=== PATIENT | female | born 1970 | race Caucasian/White ===

== ENCOUNTER 2016-07-29 21:25 | Emergency (ER) | payer BC, OTHER ==
[2016-07-29 21:41] VITALS: BP 128/69
--- NOTE | 2016-07-29 21:43 | UC ---
Cardiac HPI - HPI Summary HPI Summary: The patient comes in today for: 1. Upper left chest pain: Onset: 3 days ago. Palliative/provocative: Nothing makes it better or worse. Quality: Dull ache and sometimes it would be sharp. Region/radiation: Left anterior superior chest with mostly left arm tingling. Severity: 5/10 Time: Consant. Associated symptoms: Palpitations have occurred with pain. Dyspnea: None. Fatigue: Present. Previous heart problems: None. CAD risk factors: Smoker: (-), HTN: (-), DM (-), Fm Hx: Paternal grandfather [place] 38 y.o. Paternal grandmother age 60 from [place]. Cholesterol: "fine. " * - History of Current Complaint Stated Complaint: CHEST COMPLAINTS Time Seen by Provider: 07/29/16 21:34 Hx Obtained From: Patient - Allergy/Home Medications Allergies/Adverse Reactions: Allergies Allergy/AdvReac Type Severity Reaction Status Date / Time Latex Allergy Severe SKIN Verified 07/29/16 21:41 REACTION Iodine Allergy Unknown Unknown Verified 07/29/16 21:41 Reaction Details Shellfish Allergy Allergy Unknown Unknown Verified 07/29/16 21:41 Reaction Details IVP CONTRAST Allergy Unknown Unknown Uncoded 03/07/13 13:50 Reaction Details Home Medications: Home Medications Ibuprofen TAB* [Advil TAB*] 400 mg PO PRN 07/29/16 [History] Multiple Vitamins W/ Minerals [Vitamins & Minerals] 07/29/16 [History] PMH/Surg Hx/FS Hx/Imm Hx Previously Healthy: No Endocrine History Of: Denies: Diabetes, Thyroid Disease, Hyperthyroidism, Hypothyroidism, Dyslipidemia Cardiovascular History Of: Denies: Cardiac Disorders, Hypertension, Pacemaker/ICD, Myocardial Infarction , Congestive Heart Failure, Atrial Fibrillation, Deep Vein Thrombosis, Bleeding Disorders Respiratory History Of: Reports: Asthma Denies: COPD, Bronchitis, Pneumonia, Pulmonary Embolism GI/ History Of: Denies: Gastroesophageal Reflux, Ulcer, Gastrointestinal Bleed, Gall Bladder Disease, Kidney Stones, Diverticulitis, Renal Disease, Urosepsis Neurological History Of: Denies: TIA, CVA, Dementia, Seizures, Migraine Psychological History Of: Denies: Anxiety, Depression, Bipolar Disorder, Schizophrenia, Post Traumatic Stress Disorder Cancer History Of: Denies: Lung Cancer, Colorectal Cancer, Breast Cancer, Prostate Cancer, Cervical Cancer Other History Of: Negative For: HIV, Hepatitis B, Hepatitis C, Anticoagulant Therapy - Family History Known Family History: Positive: Cardiac Disease, Hypertension Negative: Diabetes - Social History Occupation: Employed Full-time Alcohol Use: Rare Substance Use Type: None Smoking Status (MU): Never Smoked Tobacco Review of Systems Constitutional: Negative Skin: Negative Eyes: Negative ENT: Negative Respiratory: Negative Cardiovascular: Chest Pain Gastrointestinal: Negative Genitourinary: Negative Motor: Negative All Other Systems Reviewed And Are Negative: Yes Physical Exam Triage Information Reviewed: Yes Appearance: Well-Appearing, No Pain Distress, Well-Nourished Vital Signs Reviewed: Yes Eyes: Positive: Conjunctiva Clear. Negative: Discharge ENT: Positive: Hearing grossly normal. Negative: Pharyngeal erythema, Nasal congestion, Nasal drainage, TM bulging, TM dull, TM red, Tonsillar swelling, Tonsillar exudate Dental: Negative: Gross Decay/Caries @, Dental Fracture @ Neck: Positive: Supple, Nontender, No Lymphadenopathy. Negative: Nuchal Rigidity, Tenderness @ Respiratory: Positive: Chest non-tender, Lungs clear, No respiratory distress, No accessory muscle use. Negative: Crackles, Wheezing Cardiovascular: Positive: RRR, No Murmur Abdomen Description: Positive: Nontender, No Organomegaly, Soft. Negative: Distended, Guarding Musculoskeletal: Positive: Strength Intact, ROM Intact, Other: - She has some chest tenderness to palpation, but she states that this is different from the chest pain that brings her in to be seen tonight. Neurological: Positive: Alert, Muscle Tone Normal Psychological: Positive: Age Appropriate Behavior, Consolable Skin: Negative: rashes, breakdown Diagnostics - Laboratory Diagnostic Studies Completed/Ordered: EKG: Rate: 87. Rhythm: sinus. Ectopy: ( -). Acute changes: (-) - Assessment/Plan Course Of Treatment: Patient was told that we could not rule out a cardiovascular cause of her chest pain and to do that, she would have to go to the ER. She agreed but wanted to have her friend take her. - Clinical Impression Provider Diagnoses: Chest pain - Physician Notifications Discussed Patient Care With: Nupur Flores Time Discussed With Above Provider: 21:56 Discharge - Discharge Plan Condition: Stable Disposition: HOME Additional Instructions: Please go directly to the [facility] ER.
[2016-07-29] MEDS ORDERED: Aspirin Low Dose CHEW TAB* 81 MG PO ONE (21:52)
== END 2016-07-29 21:59 | disposition left against medical advice (07) ==
LOC: UCEAST 21:25
DX: R07.89 Other chest pain (principal); R20.2 Paresthesia of skin; Z91.041 Radiographic dye allergy status
CPT/HCPCS: 99212; A9270-GY; G0463

== ENCOUNTER 2016-07-29 22:14 | Emergency (ER) | payer BC ==
[2016-07-30 00:42] LABS: Albumin 4.6 g/dL (3.2-5.2); BUN/Creatinine Ratio 20.2 (8-20); Calcium 9.9 mg/dL (8.6-10.3); EGFR African American 94.3 (>60); EGFR Non-African American 73.3 (>60); Hematocrit 40 % (35-47); Hemoglobin 13.5 g/dl (12.0-16.0); Magnesium 2.2 mg/dL (1.9-2.7); Mean Corpuscular HGB Conc 34 g/dl (31-36); Mean Corpuscular Hemoglobin 29 pg (27-31); Mean Corpuscular Volume 88 fL (80-97); Mean Platelet Volume 8 um3 (7.4-10.4); Red Cell Distribution Width 13 % (10.5-15); Total Bilirubin 0.3 mg/dL (0.2-1.0); Total Protein 7.6 g/dL (6.4-8.9); White Blood Count 10.6 10^3/ul (3.5-10.8)
[2016-07-30 01:01] VITALS: BP 116/68
[2016-07-30 01:04] LABS: TSH (Thyroid Stimulating Horm) 2.61 mcIU/mL (0.34-5.60)
--- NOTE | 2016-07-30 01:07 | ED ---
Radha Schneider Erika, scribed for Gabe Duran MD on 07/29/16 at 2332 . HPI Chest Pain - HPI Summary HPI Summary: Patient is a 46-year-old female presenting to the ED with a CC of left upper anterior chest pain. Pain is described as dull with intermittently sharp pain, and is located at the left anterior upper chest and shoulder. Patient reports that she has had the pain intermittently and mildly starting 07/27/2016 at night. Today, pain progressively worsened, and began to radiate to the left arm with tingling in the left hand. She also states she has been nauseated all day, and developed palpitations and diaphoresis this afternoon. She denies SOB. Pain was slightly alleviated by Advil at home, and was improved further by ASA at [facility]. Hx UC - takes sulfasalazine and is followed by Dr. De La Rosa. PSHx 2 C- sections, multiple Puller Machine biopsies. Pt's father at age 66 of CHF, and had no known MIs. Pt's grandfather at age 36 of an [place]. Pt's mother is alive and 73. Pt does not smoke. - History of Current Complaint Chief Complaint: EDChestPainROMI Time Seen by Provider: 07/29/16 23:06 Hx Obtained From: Patient Onset/Duration: Started Days Ago, Atraumatic, Worse Since Timing: Constant - today, Intermittent - at first Initial Severity: Mild Current Severity: Moderate Pain Intensity: 6 Pain Scale Used: 0-10 Numeric Chest Pain Location: Left Anterior - upper Chest Pain Radiates: Yes Chest Pain Radiates To:: Arm - left Character: Dull/Aching Aggravating Factor(s): Other: - palpation Alleviating Factor(s): Other: - ASA, ibuprofen Associated Signs and Symptoms: Positive: Diaphoresis, Nausea, Palpitations. Negative: Shortness of Breath - Allergy/Home Medications Allergies/Adverse Reactions: Allergies Allergy/AdvReac Type Severity Reaction Status Date / Time Latex Allergy Severe SKIN Verified 07/29/16 21:41 REACTION Iodine Allergy Unknown Unknown Verified 07/29/16 21:41 Reaction Details Shellfish Allergy Allergy Unknown Unknown Verified 07/29/16 21:41 Reaction Details IVP CONTRAST Allergy Unknown Unknown Uncoded 03/07/13 13:50 Reaction Details PMH/Surg Hx/FS Hx/Imm Hx Endocrine/Hematology History: Denies: Hx Anticoagulant Therapy, Hx Diabetes, Hx Thyroid Disease Cardiovascular History: Denies: Hx Congestive Heart Failure, Hx Deep Vein Thrombosis, Hx Hypertension , Hx Myocardial Infarction, Hx Pacemaker/ICD Respiratory History: Reports: Hx Asthma Denies: Hx Chronic Obstructive Pulmonary Disease (COPD), Hx Lung Cancer, Hx Pneumonia, Hx Pulmonary Embolism GI History: Denies: Hx Gall Bladder Disease, Hx Gastrointestinal Bleed, Hx Ulcer, Hx Urosepsis History: Denies: Hx Kidney Stones, Hx Renal Disease Neurological History: Denies: Hx Dementia, Hx Migraine, Hx Seizures, Hx Transient Ischemic Attacks (TIA) Psychiatric History: Denies: Hx Anxiety, Hx Depression, Hx Schizophrenia, Hx Bipolar Disorder - Cancer History Hx Chemotherapy: No Hx Radiation Therapy: No - Surgical History Surgery Procedure, Year, and Place: X2 Infectious Disease History: No Infectious Disease History: Denies: Traveled Outside the [place] in Last 30 Days - Family History Known Family History: Positive: Cardiac Disease - [place] at 36 - grandfather. CHF - father, Hypertension Negative: Diabetes - Social History Alcohol Use: Rare Hx Substance Use: No Substance Use Type: Reports: None Hx Tobacco Use: No Smoking Status (MU): Never Smoked Tobacco Review of Systems Positive: Skin Diaphoresis Positive: Palpitations, Chest Pain Negative: Shortness Of Breath Positive: Nausea Musculoskeletal: Other - L shoulder pain, L arm pain Positive: Paresthesia - L hand All Other Systems Reviewed And Are Negative: Yes Physical Exam Triage Information Reviewed: Yes Vital Signs On Initial Exam: Initial Vitals Temp Pulse Resp BP Pulse Ox 98.1 F 90 20 129/79 97 07/29/16 22:20 07/29/16 22:20 07/29/16 22:20 07/29/16 22:20 07/29/16 22:20 Vital Signs Reviewed: Yes Appearance: Positive: Well-Appearing, No Pain Distress Skin: Positive: Warm, Skin Color Reflects Adequate Perfusion, Dry Head/Face: Positive: Normal Head/Face Inspection Eyes: Positive: Normal ENT: Positive: Normal ENT inspection Neck: Positive: Supple, Nontender Respiratory/Lung Sounds: Positive: Clear to Auscultation, Breath Sounds Present Cardiovascular: Positive: RRR Abdomen Description: Positive: Nontender, Soft Bowel Sounds: Positive: Present Musculoskeletal: Positive: Other - Mildly tender at the left anterior upper chest Neurological: Positive: Normal Psychiatric: Positive: Affect/Mood Appropriate Diagnostics - Vital Signs Vital Signs Temp Pulse Resp BP Pulse Ox 07/29/16 22:20 98.1 F 90 20 129/79 97 - Laboratory Lab Results: Lab Results 07/30/16 07/30/16 07/30/16 Range/Units 00:15 00:15 00:15 WBC 10.6 (3.5-10.8) 10^3/ul RBC 4.60 (4.0-5.4) 10^6/ul Hgb 13.5 (12.0-16.0) g/dl Hct 40 (35-47) % MCV 88 (80-97) fL MCH 29 (27-31) pg MCHC 34 (31-36) g/dl RDW 13 (10.5-15) % Plt Count 199 (150-450) 10^3/ul MPV 8 (7.4-10.4) um3 Neut % (Auto) 63.5 (38-83) % Lymph % (Auto) 25.9 (25-47) % Daggett % (Auto) 7.6 (1-9) % Eos % (Auto) 2.2 (0-6) % Baso % (Auto) 0.8 (0-2) % Absolute Neuts (auto) 6.7 (1.5-7.7) 10^3/ul Absolute Lymphs (auto) 2.7 (1.0-4.8) 10^3/ul Absolute Monos (auto) 0.8 (0-0.8) 10^3/ul Absolute Eos (auto) 0.2 (0-0.6) 10^3/ul Absolute Basos (auto) 0.1 (0-0.2) 10^3/ul Absolute Nucleated RBC 0.01 10^3/ul Nucleated RBC % 0 D-Dimer, Quantitative < 200 (Less Than 230) ng/mL Sodium 137 (133-145) mmol/L Potassium 4.0 (3.5-5.0) mmol/L Chloride 105 (101-111) mmol/L Carbon Dioxide 24 (22-32) mmol/L Anion Gap 8 (2-11) mmol/L BUN 17 (6-24) mg/dL Creatinine 0.84 (0.51-0.95) mg/dL Est GFR ( Amer) 94.3 (>60) Est GFR (Non-Af Amer) 73.3 (>60) BUN/Creatinine Ratio 20.2 H (8-20) Glucose 99 (70-100) mg/dL Lactic Acid (0.5-2.0) mmol/L Calcium 9.9 (8.6-10.3) mg/dL Magnesium 2.2 (1.9-2.7) mg/dL Total Bilirubin 0.30 (0.2-1.0) mg/dL AST 16 (13-39) U/L ALT 22 (7-52) U/L Alkaline Phosphatase 50 (34-104) U/L Troponin I 0.00 (<0.04) ng/mL Total Protein 7.6 (6.4-8.9) g/dL Albumin 4.6 (3.2-5.2) g/dL Globulin 3.0 (2-4) g/dL Albumin/Globulin Ratio 1.5 (1-3) TSH Pending 07/30/16 Range/Units 00:15 WBC (3.5-10.8) 10^3/ul RBC (4.0-5.4) 10^6/ul Hgb (12.0-16.0) g/dl Hct (35-47) % MCV (80-97) fL MCH (27-31) pg MCHC (31-36) g/dl RDW (10.5-15) % Plt Count (150-450) 10^3/ul MPV (7.4-10.4) um3 Neut % (Auto) (38-83) % Lymph % (Auto) (25-47) % Daggett % (Auto) (1-9) % Eos % (Auto) (0-6) % Baso % (Auto) (0-2) % Absolute Neuts (auto) (1.5-7.7) 10^3/ul Absolute Lymphs (auto) (1.0-4.8) 10^3/ul Absolute Monos (auto) (0-0.8) 10^3/ul Absolute Eos (auto) (0-0.6) 10^3/ul Absolute Basos (auto) (0-0.2) 10^3/ul Absolute Nucleated RBC 10^3/ul Nucleated RBC % D-Dimer, Quantitative (Less Than 230) ng/mL Sodium (133-145) mmol/L Potassium (3.5-5.0) mmol/L Chloride (101-111) mmol/L Carbon Dioxide (22-32) mmol/L Anion Gap (2-11) mmol/L BUN (6-24) mg/dL Creatinine (0.51-0.95) mg/dL Est GFR ( Amer) (>60) Est GFR (Non-Af Amer) (>60) BUN/Creatinine Ratio (8-20) Glucose (70-100) mg/dL Lactic Acid 1.2 (0.5-2.0) mmol/L Calcium (8.6-10.3) mg/dL Magnesium (1.9-2.7) mg/dL Total Bilirubin (0.2-1.0) mg/dL AST (13-39) U/L ALT (7-52) U/L Alkaline Phosphatase (34-104) U/L Troponin I (<0.04) ng/mL Total Protein (6.4-8.9) g/dL Albumin (3.2-5.2) g/dL Globulin (2-4) g/dL Albumin/Globulin Ratio (1-3) TSH Result Diagrams: 07/30/16 00:15 07/30/16 00:15 Lab Statement: Any lab studies that have been ordered have been reviewed, and results considered in the medical decision making process. - Radiology CXR Xray Interpretation: No Acute Changes Radiology Interpretation Completed By: ED Physician - EKG 22:26 Cardiac Rate: NL - at 89 bpm EKG Rhythm: Sinus Rhythm ST Segment: Non-Specific Re-Evaluation - Re-Evaluation First Eval Re-Evaluation Time: 01:00 Change: Improved Comment: Discussed labs and CXR. Will be discharged at this time Chest Pain Course/Dx - Course Course Of Treatment: Zuleyma Espino presented with a C/O chest pain for a couple days. She felt a little clammy but otherwise had no associated symptoms and reported no exacerbating or relieving factors. She does have a family history remotely of CAD. Her W/U was negative here includin troponin and d- dimer. She had reproducible pain in the left upper chest. Her EDACS score was a -1. She will be D/C'd to F/U with her PMD. - Diagnoses Provider Diagnoses: Chest wall pain Discharge - Discharge Plan Condition: Stable Disposition: HOME Patient Education Materials: Chest Wall Pain (ED), Palpitations (ED) Referrals: Fahad Adams MD [Primary Care Provider] - The documentation as recorded by the Radha koch Erika accurately reflects the service I personally performed and the decisions made by me, Gabe Duran MD.
--- NOTE | 2016-07-30 07:52 | RAD ---
HISTORY: Chest pain COMPARISONS: None VIEWS:1: Single frontal portable view of the chest at 11:33 PM FINDINGS: LINES AND TUBES: None. CARDIOMEDIASTINAL SILHOUETTE: The cardiomediastinal silhouette is normal for portable technique. PLEURA: The costophrenic angles are sharp. No pleural abnormalities are noted. LUNG PARENCHYMA: The lungs are clear. ABDOMEN: The upper abdomen is clear. There is no subphrenic gas. BONES AND SOFT TISSUES: No bone or soft tissue abnormalities are noted. IMPRESSION: NO ACTIVE CARDIOPULMONARY DISEASE.
== END 2016-07-30 01:07 | disposition home or self-care (01) ==
LOC: ED 22:14
DX: R07.89 Other chest pain (principal); J45.909 Unspecified asthma, uncomplicated
CPT/HCPCS: 36415; 71010; 80053; 83605; 83735; 84443; 84484; 85025; 85379; 93005; 99212; 99283; A9270-GY; G0463

== ENCOUNTER 2017-09-22 11:17 | Day surgery (SDC) | payer BC ==
--- NOTE | 2017-09-17 08:01 | HP ---
CC: Dr. Fahad Adams * HISTORY AND PHYSICAL: DATE OF ADMISSION/SURGERY: 09/22/17 PRIMARY CARE PHYSICIAN: Fahad Adams MD ATTENDING SURGEON: Wilian Tejeda MD * (DICTATED BY LUIS KHANNA) CHIEF COMPLAINT: Right inguinal hernia. HISTORY OF PRESENT ILLNESS: Ms. Espino is a pleasant 47-year-old female, who was seen in the office earlier this month for evaluation of possible hernia. The patient noted swelling in her right lower abdomen when she was showering back in May of last year. She now feels the same bulge on her right inguinal area that is usually worse in the morning and has minimal discomfort later in the afternoon. She noticed that the bulge is more uncomfortable when she strains or coughs. She denied any redness or drainage from the small swelling area in her right groin. She denies any nausea, vomiting, or recent changes in the bowel habits. The patient was seen initially by Dr. Tejeda earlier this month and there was questionable hernia on the right inguinal site upon clinical exam. The patient was sent for an ultrasound of the right groin for further evaluation. Images and reports were discussed with Dr. Tejeda, who saw the patient a couple of weeks afterwards. The ultrasound revealed no evidence of any masses or lesions. However, the patient continued to have some right lower quadrant pain and bulge usually worse with straining or coughing for which she presents today for further evaluation and to discuss hernia repair. She denies any significant changes since her last office visit. She otherwise is a relatively healthy middle-aged female. PAST MEDICAL HISTORY: Significant for: 1. Mild intermittent asthma. 2. Headaches. 3. Osteoarthritis. 4. Ulcerative colitis of the sigmoid colon. PAST SURGICAL HISTORY: Significant for section x2. CURRENT MEDICATIONS: Her medications at home include: 1. Microgestin 0.5/30 one tablet every day. 2. ProAir 108 mcg 2 puffs by mouth every 4 hours as needed for shortness of breath. 3. Azulfidine tablet 500 mg 1 tablet b.i.d. 4. Minocycline 100 mg 1 capsule b.i.d. 5. One Daily vitamin. ALLERGIES: She is allergic to IODINE, LATEX, SHELLFISH, and IVP CONTRAST. FAMILY HISTORY: Noncontributory. SOCIAL HISTORY: The patient is . She has never smoked and she works as a human resource employee at [employer] and she drinks alcohol rarely and caffeine intake is minimal. REVIEW OF SYSTEMS: See HPI, otherwise negative. She denies any headache, dizziness, blurred vision, or double vision. No chest pain, palpitation, dyspnea, or shortness of breath. No sore throat, cough, or wheezing. She denies any back pain, flank pain, hematuria, dysuria, or urinary frequency. She admits to right inguinal pain and bulge, but denies any nausea, vomiting, or recent change in the bowel habits. No fever, chills, night sweats, or recent weight loss. PHYSICAL EXAMINATION GENERAL: She is a pleasant, obese, healthy-appearing middle-aged female, in no acute distress or discomfort at the time of the visit. VITAL SIGNS: Her vitals today revealed blood pressure of 120/72, pulse of 92, respirations 16, temperature of 99.3. HEENT: Head is normocephalic, atraumatic. Sclerae anicteric. PERRLA. EOMs intact. Oropharynx is pink and moist. NECK: Supple. Trachea midline. No cervical adenopathy or thyromegaly. LUNGS: Clear to auscultation bilaterally. HEART: Regular rate and rhythm. Normal S1 and S2 without rubs, murmurs, or gallops. BACK: Normal curvature. No CVA tenderness. BREAST EXAM: Deferred at this time. ABDOMEN: Soft, nontender, and nondistended. There is a an old scar present. No evidence of ventral or incisional hernias. Focus examination of the right groin area revealed 1-cm palpable mass at the lateral aspect of the section scar in the right lower quadrant. That was minimally tender with no overlying skin changes. There is no definite palpable inguinal hernia upon standing or lying supine. However, the patient had experienced some pain along the inguinal canal on the right side especially with coughing. EXTREMITIES: Without cyanosis, clubbing, or edema. RECTAL: Deferred at this time. NEUROLOGIC: Grossly intact. IMPRESSION: A 47-year-old female with persistent right inguinal pain and occasional bulge that is consistent with right inguinal hernia. PLAN: We went on and discussed with the patient proceeding with an open right inguinal hernia repair with mesh. She has had persistent inguinal pain for 3 months now and there is no clear palpable hernia; however, we discussed examination and evaluation of the inguinal region in the operating room to see if she may indeed be suffering from a hernia defect. The patient understands the risks involved and wishes to proceed as outlined. All her questions were answered and the patient was seen earlier with Dr. Tejeda to confirm her plans for surgery. She will be scheduled for an open right inguinal hernia repair and we will plan to see her a week after that for a postop visit. LUIS KHANNA [id number]/[facility] #: [id number] MTDJayna
[~2017-09-22 11:17] MED LIST: Buffered Lidocaine 0.9% SYRIN* 5 ML/SYR SYRINGE INTRADERM ONE; Dexamethasone IV* 4 MG/ML 1 ML (4 MG) IV SLOW PU ONE; Famotidine IV* 10 MG/ML 2 ML (20 mg) IV ONE; ceFAZolin 2 GM PREMIX (*) 2 GM/50 ML BAG IVPB ONE
[2017-09-22] MEDS ORDERED: Famotidine IV* 10 MG/ML 2 ML (20 mg) ONE (11:32)
[2017-09-22] MEDS ORDERED: ceFAZolin 2 GM PREMIX (*) 2 GM/50 ML BAG IVPB ONE (11:32)
[2017-09-22] MEDS ORDERED: Dexamethasone IV* 4 MG/ML 1 ML (4 MG) ONE (11:32)
[2017-09-22] MEDS ORDERED: Midazolam* 1 MG/ML 5 ML VIAL (5 MG) ONE (12:51)
[2017-09-22] MEDS ORDERED: fentaNYL* 50 MCG/ML 2 ML VIAL (100 MCG VIAL) ONE ×3 (12:51→14:14)
[2017-09-22] MEDS ORDERED: Lidocain 1% EPI 1:100,000 * 30 ML MDV ONE (13:32)
[2017-09-22] MEDS ORDERED: Bupivacaine 0.5% SDV PF* 30ML VIAL ONE (13:32)
[2017-09-22] MEDS ORDERED: Ondansetron INJ* 2 MG/ML VIAL ONE (14:38)
[2017-09-22] MEDS ORDERED: Ketorolac INJ* 30 MG/ML 1 ML VIAL ONE (14:38)
[2017-09-22] MEDS ORDERED: Propofol* 10 MG/ML 20 ML BTL IV PUSH ONE (14:38)
[2017-09-22] MEDS ORDERED: oxyCODONE/Acetamin 5/325 MG* TAB PO PRN ×2 (15:26→15:51)
[2017-09-22] MEDS ORDERED: Scopolamine 1.5 mg* PATCH TRANSDERM PRN (15:51)
[2017-09-22] MEDS ORDERED: Naloxone* 0.4 MG/ML 1 ML VIAL IV PRN (15:51)
[2017-09-22] MEDS ORDERED: DiMENhydriNATE IV* 50 MG/ML VIAL IV PUSH PRN (15:51)
[2017-09-22] MEDS ORDERED: fentaNYL* 50 MCG/ML 2 ML VIAL (100 MCG VIAL) IV PRN (15:51)
[2017-09-22] MEDS ORDERED: Ondansetron INJ* 2 MG/ML VIAL IV PRN (15:51)
[2017-09-22 17:12] VITALS: BP 123/83
--- NOTE | 2017-09-23 15:33 | OP ---
CC: Fahad Adams MD * DATE OF OPERATION: 09/22/17 - [facility] DATE OF : 72 SURGEON: Wilian Tejeda MD CELLULAR EQUIPMENT REPAIRER: LUIS Encarnacion ANESTHESIOLOGIST: Dr. Evans. ANESTHESIA: General anesthesia with LMA. PRE-OP DIAGNOSIS: Left inguinal pain, left inguinal hernia. POST-OP DIAGNOSIS: Left inguinal pain, left inguinal hernia. OPERATIVE PROCEDURE: Open left inguinal hernia repair with mesh. ESTIMATED BLOOD LOSS: Minimal. IV FLUIDS: Minimal. SPECIMEN: None. COUNTS: Lap, pad count and instrument counts are correct at the end of the procedure. DESCRIPTION OF PROCEDURE: Ms. Espino was worked up as an outpatient with persistent complaints of pain in the right groin region. Workup included ultrasound with no specific findings. However, I felt this pain did warrant exploration of the inguinal region given the description. Please see separate reports for details. I outlined the details of the procedure to the patient who signed consent. She was marked on the day of surgery and taken to the OR, placed on the operating table in the supine position. General anesthesia was induced. The patient's pubic area was clipped of hair and it was prepped and draped in a standard surgical fashion, a time-out was performed. I made an inguinal incision somewhat higher than our difficult place to examine the point of patient's maximal tenderness, which was somewhat superior to this. We made flaps cephalad into the spacer. The patient had some tenderness. There was scar tissue from . This was debrided somewhat right on top of the anterior fascia, but for the most part, did not see any discrete lesions. We then continued our dissection through Eddi's and Camper's fascia down to the aponeurosis external oblique. This was incised along direction of the fibers with an incision that was somewhat high above the inguinal canal. We made flaps both cephalad and caudad. We visualized well the shelving edge of the inguinal ligament, the transversalis fascia as well. The round ligament was isolated and ligated with 2-0 Vicryl sutures. The floor of the inguinal canal appeared intact without any discrete lesion, but our plan was to place a mesh at this site once opened. We utilized a left-sided ProGrip mesh. Since there were no cord structures, we left it intact and placed it overlying the pubic tubercle and extending it out laterally, covered the full dissected area including the floor of the inguinal canal. We irrigated, hemostasis was achieved, then closed an area of the transversalis that was opened up earlier on our dissection with 0 Polysorb suture in a mattress fashion. We then reapproximated external aponeurosis with a running 2-0 Vicryl suture. The skin was then closed with 3-0 Vicryl followed by 4-0 Monocryl subcuticular suture. Steri-Strips and sterile dressings were applied. The patient tolerated the procedure well and was woken up in the OR and transferred to the PACU in stable condition. [id number]/[facility] #: [id number] MTDD
--- NOTE | 2017-10-25 12:06 | OP ---
OPERATIVE REPORT: Original document number is [id number] ADDENDUM: DATE OF OPERATION: 09/22/17 DATE OF : 72 SURGEON: Wilian Tejeda MD PRE-OP DIAGNOSES: Right inguinal pain and right inguinal hernia. POST-OP DIAGNOSES: Right inguinal pain and right inguinal hernia. OPERATIVE PROCEDURE: Open right inguinal hernia repair with mesh. [id number]/[facility] #: [id number] [facility]
== END 2017-09-22 17:13 | disposition home or self-care (01) ==
LOC: OR 11:17
PROVIDERS: ATTEND Surgery
DX: K40.90 Unilateral inguinal hernia, without obstruction or gangrene, not specified as recurrent (principal); K51.90 Ulcerative colitis, unspecified, without complications; J45.909 Unspecified asthma, uncomplicated; E66.9 Obesity, unspecified
CPT/HCPCS: 81025; C1781; J0690; J1100; J1885; J2250; J2405; J2704; J3010

== ENCOUNTER 2019-08-27 15:52 | Emergency (ER) | payer BC ==
[2019-08-27 16:32] VITALS: BP 139/72
--- NOTE | 2019-08-27 16:37 | UC ---
FLU HPI - HPI Summary HPI Summary: 49-year-old female with history of asthma presents with 2 day history of general malaise, fatigue, headache, body aches, fever, chills, nasal congestion , sore throat, and a dry nonproductive cough. Reports mild shortness of breath and occasional wheezing. Using her albuterol inhaler 2 or 3 times a day. Denies ear pain, dysphagia, chest pain, abdominal pain, nausea, vomiting, or diarrhea. - History of Current Complaint Chief Complaint: UCGeneralIllness Stated Complaint: CHEST CONGESTION/FEVER/BODY ACHES/CHILLS Time Seen by Provider: 08/27/19 16:30 Hx Obtained From: Patient Hx Last Menstrual Period: 08/09/19 Pain Intensity: 5 - Allergy/Home Medications Allergies/Adverse Reactions: Allergies Allergy/AdvReac Type Severity Reaction Status Date / Time iodine Allergy Hives Verified 08/27/19 16:33 latex Allergy Hives Verified 08/27/19 16:33 shellfish derived Allergy Difficulty Verified 08/27/19 16:33 Breathing IVP CONTRAST Allergy Unknown Swelling Uncoded 08/27/19 16:33 Of Face,Lips,& Throat Home Medications: Home Medications Albuterol HFA INHALER* [Ventolin HFA Inhaler*] 1 puff INH Q4H PRN 05/20/16 [ History Confirmed 08/27/19] Multivitamin,Ther and Minerals [Vitamin and Minerals] 1 tab PO QAM 07/29/16 [ History Confirmed 08/27/19] sulfaSALAzine TAB* [Azulfidine TAB*] 1,000 mg PO TID 09/20/17 [History Confirmed 08/27/19] Acetaminophen [Acetaminophen Extra Strength] 2 tab PO Q4H PRN 06/30/19 [History Confirmed 08/27/19] Fermin Fe 1.5-30 Tablet 1 tab PO DAILY 06/30/19 [History Confirmed 08/27/19] Omeprazole 20 mg PO DAILY 06/30/19 [History Confirmed 08/27/19] Benzonatate CAP* [Tessalon 100 MG CAP*] 100 mg PO TID PRN #21 cap 08/27/19 [Rx] Oseltamivir CAP* [Tamiflu CAP*] 75 mg PO BID #10 cap 08/27/19 [Rx] PMH/Surg Hx/FS Hx/Imm Hx Respiratory History: Asthma GI/ History: Gastroesophageal Reflux, Other - Ulcerative colitis Other History Of: Negative For: HIV, Hepatitis B, Hepatitis C, Anticoagulant Therapy - Surgical History Surgical History: Yes Surgery Procedure, Year, and Place: X2 2000 and 2006 - [facility] [place]. 2008 [facility] [place] - Family History Known Family History: Positive: Cardiac Disease - [place] at 36 - grandfather. CHF - father, Hypertension Negative: Diabetes - Social History Occupation: Employed Full-time Lives: With Family Alcohol Use: Rare Substance Use Type: None Smoking Status (MU): Never Smoked Tobacco Review of Systems All Other Systems Reviewed And Are Negative: Yes Constitutional: Positive: Fever, Chills ENT: Positive: Sore Throat, Nasal Discharge, Sinus Congestion. Negative: Ear Ache, Sinus Pain/Tenderness Respiratory: Positive: Shortness Of Breath, Cough, Other - Wheezing Cardiovascular: Negative: Chest Pain Gastrointestinal: Negative: Abdominal Pain, Vomiting, Diarrhea, Nausea Genitourinary: Positive: Negative Musculoskeletal: Positive: Myalgia Neurological/Mental Status: Positive: Headache Is Patient Immunocompromised?: No Physical Exam - Summary Physical Exam Summary: GENERAL APPEARANCE: Well developed, well nourished, alert and cooperative, and appears to be in no acute distress. EYES: Conjunctiva clear. No drainage. EARS: External auditory canals and tympanic membranes clear, hearing grossly intact. NOSE: Moderate nasal congestion. No nasal discharge. THROAT: Pharyngeal erythema. No tonsilar inflammation, swelling, exudate, or lesions. Uvula midline. NECK: Neck supple, non-tender without lymphadenopathy. CARDIAC: Normal S1 and S2. No S3, S4 or murmurs. Rhythm is regular. There is no peripheral edema, cyanosis or pallor. Extremities are warm and well perfused. Capillary refill is less than 2 seconds. Peripheral pulses intact. LUNGS: Clear to auscultation without rales, rhonchi, wheezing or diminished breath sounds. Dry, non-productive cough. ABDOMEN: Positive bowel sounds. Soft, nondistended, nontender. No guarding or rebound. No masses or hepatosplenomegally. MUSKULOSKELETAL: ROM intact to all extremities. No joint erythema or tenderness. Normal muscular development. Normal gait. SKIN: Skin normal color, texture and turgor with no lesions or eruptions. Triage Information Reviewed: Yes Vital Signs: Initial Vital Signs Temp 100 F 08/27/19 16:25 Pulse 120 08/27/19 16:25 Resp 16 08/27/19 16:25 BP 139/72 08/27/19 16:25 Pulse Ox 99 08/27/19 16:25 Vital Signs Reviewed: Yes Flu Course/Dx - Course Course Of Treatment: 49-year-old female with history of asthma presents with 2 day history of general malaise, fatigue, headache, body aches, fever, chills, nasal congestion , sore throat, and a dry nonproductive cough. Reports mild shortness of breath and occasional wheezing. Using her albuterol inhaler 2 or 3 times a day. Denies ear pain, dysphagia, chest pain, abdominal pain, nausea, vomiting, or diarrhea. Patient had a mildly elevated temperature of 100.0 F with a corresponding tachycardia otherwise vital signs were stable. Patient had moderate nasal congestion, normal TMs, pharyngeal erythema with tonsillar swelling or exudate, no cervical lymphadenopathy, clear bilateral breath sounds , dry nonproductive cough, and otherwise unremarkable exam. With her history of asthma and that she is on sulfasalazine for her ulcerative colitis recommending that she start on Tamiflu 75 mg twice a day 5 days as well as symptomatic treatment with the flu. She is to follow-up with her primary care provider in 5-7 days if symptoms are not improving. Anticipatory guidance and warning symptoms are reviewed with the patient. Verbalizes understanding and agrees with plan of care. - Differential Dx/Diagnosis Differential Diagnosis/HQI/PQRI: Bronchitis, Influenza, Pneumonia, Upper Respiratory Infection Provider Diagnosis: Influenza A Discharge ED - Sign-Out/Discharge Documenting (check all that apply): Patient Departure All imaging exams completed and their final reports reviewed: No Studies - Discharge Plan Condition: Stable Disposition: HOME Prescriptions: Benzonatate CAP* [Tessalon 100 MG CAP*] 100 mg PO TID PRN #21 cap PRN Reason: Cough Oseltamivir CAP* [Tamiflu CAP*] 75 mg PO BID #10 cap Patient Education Materials: Influenza (ED) Referrals: Fahad Adams MD [Primary Care Provider] - Additional Instructions: Your flu test in the clinic today was positive for influenza A. Start Tamiflu 1 capsule twice a day for 5 days. Get plenty of rest. Drink plenty of fluids to avoid dehydration especially if you are running any fever. Take over the counter acetaminophen (Tylenol) or ibuprofen (Advil, Motrin) according to directions as needed for pain or fever. Continue to use your albuterol inhaler as directed for any shortness of breath or wheezing. Take Tessalon Perles 1 cap every 8 hours as needed for cough. Use salt water gargles several times a day if you have a sore throat. You may also use Chloraseptic spray or Cepacol lonzenges according to directions which contain a numbing medication and can provide some temporary relief from your sore throat. Follow up with your primary care provider in 5-7 days if symptoms persist. Seek immediate medical attention in the emergency room if you have fever greater than 100.5 F despite taking acetaminophen or ibuprofen, have chest pain , difficulty breathing, are unable to swallow, or have any worsening of symptoms. - Billing Disposition and Condition Condition: STABLE Disposition: Home
[2019-08-27 16:45] LABS: Influenza A Molecular POSITIVE (Negative)
[2019-08-27] MEDS ORDERED: Oseltamivir CAP* 75 MG CAP PO ONE (16:52)
== END 2019-08-27 17:01 | disposition home or self-care (01) ==
LOC: UCCORT 15:52
DX: J10.1 Influenza due to other identified influenza virus with other respiratory manifestations (principal); J45.909 Unspecified asthma, uncomplicated; K51.90 Ulcerative colitis, unspecified, without complications; K21.9 Gastro-esophageal reflux disease without esophagitis; Z79.899 Other long term (current) drug therapy; Z91.09 Other allergy status, other than to drugs and biological substances; Z91.040 Latex allergy status; Z91.013 Allergy to seafood; Z91.041 Radiographic dye allergy status
CPT/HCPCS: 99212; A9270-GY; G0463